=== PATIENT | male | born 1950 | race Caucasian/White ===

== ENCOUNTER → 2016-06-06 | Outpatient (CLI) | payer OTHER ==
[~2016-06-06] VITALS: Ht 180.3 cm; Wt 61.7 kg
[~2016-06-06] MED LIST: ADVAIR 250/501 DISK IH; ADVAIR HFA120 INHALA IH; AUGMENTIN500 MG PO; CATAPRES-TTS 11 EACH TD; CLARITIN,ALAVAR10 MG PO; FLEXERIL5 MG PO; FLONASE16 G1 BOTH NARES; MIRTAZAPINE15 MG PO; MORPHINE SULFAT15 M1 PO; MOTRIN600 MG PO; OXYCODONE-APAP1 EACH PO; PAXIL20 MG PO; PERCOCET 5/31 TABLET PO; PROVENTIL HFA6.7 GM IH
== END | disposition home or self-care (01) ==
LOC: AMB 07:16
PROC: 0DBE8ZX Excision of Large Intestine, Via Natural or Artificial Opening Endoscopic, Diagnostic (ICD-10-PCS; principal; 2016-06-06)
DX: Z09 Encounter for follow-up examination after completed treatment for conditions other than malignant neoplasm (principal); D12.3 Benign neoplasm of transverse colon; K57.90 Diverticulosis of intestine, part unspecified, without perforation or abscess without bleeding; Z86.010 Personal history of colon polyps; K64.2 Third degree hemorrhoids; I10 Essential (primary) hypertension; J44.9 Chronic obstructive pulmonary disease, unspecified; F17.200 Nicotine dependence, unspecified, uncomplicated
CPT/HCPCS: 88305; B4087; J2250; J3010